=== PATIENT | male | born 1970 | race Caucasian/White ===

== ENCOUNTER → 2017-07-14 | Outpatient (CLI) | payer BC ==
[~2017-07-14] MED LIST: ACET30TA PO; ATV/1 PO; LAMO200T38 PO; LEVE500T26 PO; PHEN-310 PO; PHN/100 PO; RIZA10TA18 PO
--- NOTE | 2017-07-14 11:55 | DIAGNOSTIC IMAGING REPORT ---
L HAND MIN 3 VIEWS ROUTINE, L WRIST MIN 3 VIEWS ROUTINE HISTORY: 47 years-old Male LEFT WRIST INJURY acute left hand and wrist pain status post trauma COMPARISON: None available TECHNIQUE: 3 views of the left hand and 4 views of the left wrist FINDINGS: HAND: Mild first carpometacarpal osteoarthritis. No acute fracture, dislocation or loose body. WRIST: Mild first carpal metacarpal osteoarthritis. Subcortical cystic changes of the trapezium and scaphoid. Mild dorsal wrist soft tissue swelling. No acute fracture or dislocation. IMPRESSION: 1. Mild dorsal wrist soft tissue swelling without acute left hand or wrist fracture or dislocation. 2. Mild first carpal metacarpal osteoarthritis. The above report was generated using voice recognition software. It may contain grammatical, syntax or spelling errors. Electronically signed by: Vlad Baltazar M.D. 07/14/2017 11:53 AM Dictated Date/Time: 07/14/2017 11:51 AM
== END | disposition home or self-care (01) ==
LOC: C.RAD1850 11:36
PROVIDERS: ATTEND Family Medicine
DX: S69.92XA Unspecified injury of left wrist, hand and finger(s), initial encounter (principal); X58.XXXA Exposure to other specified factors, initial encounter

== ENCOUNTER → 2017-07-15 | Outpatient (CLI) | payer BC ==
--- NOTE | 2017-07-15 11:08 | DIAGNOSTIC IMAGING REPORT ---
L UPPER EXT JOINT WITHOUT CLINICAL HISTORY: S69.92XA UNSPECIFIED INJURY OF LEFT Wrist, hand AND FINGERS pain TECHNIQUE: Multiaxial MRI acquisition COMPARISON STUDY: Routine series left hand and wrist 07/14/2017 FINDINGS: Limited study technically due to considerable patient motion. The study nevertheless confirms presence of a soft tissue contusion medially distal to the radial styloid. This is associated with a moderate bone contusion of the trapezium and to a lesser extent distal aspect of the navicular. A small degenerative cyst measuring 5 mm is identified in the distal aspect of the navicular. All remaining osseous structures of the carpal region demonstrate mild degenerative change of the articular services. This particularly prominent involving the first as well as second carpometacarpal joints. No evidence for major ligamentous or tendinous disruption within limitations of patient motion. The granular fibrocartilage appears to be grossly intact. All major structures of the carpal region are intact. IMPRESSION: 1. Limited study due to patient motion. 2. Moderate bone contusion involving the trapezium and small distal region of the navicular. 2. Soft tissue contusion lateral and distal to the radial styloid. 3. Moderate degenerative changes throughout. 4. No evidence for major ligamentous or tendinous disruption. The above report was generated using voice recognition software. It may contain grammatical, syntax or spelling errors. Electronically signed by: Papi So M.D. 07/15/2017 11:07 AM Dictated Date/Time: 07/15/2017 11:00 AM
== END | disposition home or self-care (01) ==
LOC: C.MRI 09:53
PROVIDERS: ATTEND Student in an Organized Health Care Education/Training Program
DX: S60.212A Contusion of left wrist, initial encounter (principal); X58.XXXA Exposure to other specified factors, initial encounter; M19.032 Primary osteoarthritis, left wrist

== ENCOUNTER → 2018-04-16 | Outpatient (CLI) | payer BC ==
[~2018-04-16] MED LIST changes: +ACET300T3 PO; -ACET30TA PO; +CYCL10TA6 PO; +DLN100 PO; +FROV2.5T5 PO; +IBUP-1050 PO; +KETO10TA PO; +LAMO200T35 PO; -LAMO200T38 PO; +LEVE500T13 PO; -LEVE500T26 PO; +OXYC-90 PO; -PHEN-310 PO; -PHN/100 PO; +PRED50TA PO; +TAMS0.4C38 PO
--- NOTE | 2018-04-16 17:41 | DIAGNOSTIC IMAGING REPORT ---
LUMBAR SPINE MRI HISTORY: Right leg pain. Right ankle pain. TECHNIQUE: Multiplanar multisequence MRI of the lumbar spine was performed without the use of contrast. COMPARISON: Lumbar spine CT 04/12/2018. FINDINGS: For the purpose of the report the L5-S1 disc space will be located on axial image 23 of 25. Mild motion artifact. No fracture or subluxation. Mild disc space narrowing at L4-L5. There is disc desiccation at L3-L4, L4-L5, and L5-S1. The conus terminates at the T12-L1 disc space. L1-L2: No significant central canal or neural foraminal narrowing. L2-L3: No significant central canal or neural foraminal narrowing. L3-L4: Small broad-based posterior disc bulge with a focal central annular tear. No significant central canal or neural foraminal narrowing. L4-L5: Broad-based posterior disc bulge with a tiny left paracentral disc protrusion. There is also a large right paracentral disc extrusion demonstrating inferior subligamentous migration and extension into the right L5-S1 neural foramen. This disc extrusion measures approximately 2.0 x 1.8 x 0.7 cm. This compresses the exiting right L5 nerve root within the neural foramen. There is mild central canal narrowing at this level. There is mild left-sided neural foraminal narrowing. L5-S1: Small focal central disc protrusion resulting in mild central canal narrowing. There is mild to moderate left-sided neural foraminal narrowing. Severe right neural foraminal narrowing due to the disc herniation within the right neural foramen compressing the exiting right L5 nerve root. IMPRESSION: 1. There is also a large right paracentral disc extrusion at L4-L5 demonstrating inferior subligamentous migration and extension into the right L5-S1 neural foramen. This compresses the exiting right L5 nerve root within the neural foramen. 2. Small focal central disc protrusion at L5-S1 resulting in mild central canal narrowing. Electronically signed by: Jourdan Staples M.D. 04/16/2018 5:40 PM Dictated Date/Time: 04/16/2018 5:32 PM
== END | disposition home or self-care (01) ==
PROVIDERS: ATTEND Orthopaedic Surgery Orthopaedic Surgery of the Spine
DX: M51.27 Other intervertebral disc displacement, lumbosacral region (principal); M79.604 Pain in right leg; M25.571 Pain in right ankle and joints of right foot